=== PATIENT | male | born 1990 | race Caucasian/White ===

== ENCOUNTER 2017-08-13 16:07 | Emergency (ER) | payer BC, OTHER ==
[~2017-08-13] VITALS: Ht 175.3 cm; Wt 80.9 kg
[2017-08-13 16:14] VITALS: TEMP 36.5; Ht 175.3 cm; Wt 80.9 kg
[2017-08-13] MEDS ORDERED: GELATIN SPONGE 12-7MM ONE (16:40)
[2017-08-13] MEDS ORDERED: XYLOCAINE 1%/SOD BICARB 20 ML VIAL INFIL ONE (16:41)
[2017-08-13] MEDS ORDERED: DIPHTHERIA/TETANUS/PERTUSSIS 0.5 ML SYR/VIAL IM. ONE (17:15)
[2017-08-13 17:34] VITALS: BP 130/76; PULSE 76; O2SAT 98
--- NOTE | 2017-08-13 19:49 | EMERGENCY ROOM VISIT NOTE ---
ED Visit Note First contact with patient: 16:23 Chief complaint: Left long finger laceration HPI: This 27-year-old white male presents for evaluation of a laceration on his left long finger. The patient was working on his motorcycle yesterday when his finger slipped against a sharp edge of metal. He sustained a skin avulsion off of the ulnar tip of his long finger. He did not seek treatment at that time. He did put a Band-Aid on and covered it up with adhesive medical tape. He states the finger continues to bleed. He tried to change the bandages today but could not stand the pain. He was brought here by his significant other and family. He denies any numbness, tingling, or loss of motion. No other complaints. Tetanus is believed to be out of date. Pain is 10/10. He would not allow the triage nurse to remove his bandage secondary to pain in his finger. He is very anxious. Supplemental sheet was reviewed and signed. Previous surgeries: None Medical history: Benign Current Medications: None Allergies: NKDA Tetanus: Greater than 10 years Family History: Noncontributory. Social History: Positive tobacco use, employed. Single. REVIEW OF SYSTEM: HEENT: No dizziness, visual problems, hearing loss, or tinnitus. There is no difficulty swallowing and no oral lesions are present. PULMONARY: No cough, shortness of breath, sputum production or hemoptysis. CARDIOVASCULAR: No chest pain, palpitations, shortness of breath or peripheral edema. GASTROINTESTINAL: No diarrhea, constipation, nausea, vomiting, or abdominal pain. GENITOURINARY: No dysuria, frequency, urgency or nocturia. NEUROLOGIC: No weakness, muscle tenderness, epilepsy or history of neurological problems. MUSCULOSKELETAL: No history of joint tenderness/swelling. No history of arthritis or arthralgias. SKIN: No rashes or lesions. ENDOCRINE: No history of diabetes, thyroid disorders, or abnormal hair growth. Physical Exam: Vitals: Afebrile. Reviewed and filed in patient's chart General: Well-developed, well-nourished, young white male, in no acute distress. Obvious discomfort. He is sitting on the bed. Alert and oriented. Very anxious. Skin: Warm and dry with good turgor. No rashes. No ecchymosis or erythema. The patient is not diaphoretic. No abrasions. The patient has a large bandage present on his left long finger. This was removed carefully. The underlying Band-Aid was left in place until his finger was anesthetized. Upon removal, he has a small area of skin avulsion over the very tip. Approximately 1 cm long by 4 mm wide. It is superficial and there is no bone exposure. No nail involvement. Musculoskeletal: She has intact motor function to the MCP, PIP, and DIP joints. He has full extension. Strength is 5/5 for resisted flexion and extension. Neurologic: Gross sensation is intact across the finger including the tip. Impression: Left long finger tip avulsion Procedure: Informed oral consent was obtained for cleansing. The left long finger was prepped with Betadine and draped with a sterile towel. Area was anesthetized using 4 mL 1% plain buffered lidocaine in a digital block. Finger tourniquet was placed. This was in place for approximately 12 minutes. Thorough inspection was performed. Wound was irrigated using Betadine diluted with normal sterile saline, under jet spray lavage. There is no foreign material. No bone exposure. No nail involvement. Gelfoam was applied and a pressure dressing was applied. Hemostasis was achieved. Plan: Patient was educated regarding today's findings. Conservative care measures were discussed. He will keep the bandage in Gelfoam in place for 3-4 days. Outer dressing may be removed at that point. Trim any loose Gelfoam at that time. Do not pick at the remaining attached Gelfoam. Cleanse the wound daily with soap and water. Ice and elevate intermittently as needed for discomfort. Tylenol and ibuprofen every 6 hours as needed for pain. Wound care handout was provided. He may shower. Avoid soaking or swimming for two weeks. Return to the ER for any acute changes or signs of infection. Tetanus was updated using Adacel 0.5 mL IM. Current/Historical Medications No Active Prescriptions or Reported Meds Allergies Coded Allergies: No Known Allergies (Unverified , 08/13/17) Vital Signs Date Time Temp Pulse Resp B/P (MAP) Pulse Ox O2 Delivery O2 Flow Rate FiO2 08/13/17 17:34 76 20 130/76 98 08/13/17 16:14 36.5 90 18 145/96 100 Room Air Medications Administered Medications (Trade) Dose Ordered Sig/Miki Route Start Time Stop Time Status Last Admin Dose Admin Diphtheria/ Pertussis/Tetanus Vacc (Adacel Inj) 0.5 ml ONCE ONCE IM. 08/13/17 17:15 08/13/17 17:16 DC 08/13/17 17:12 0.5 ML Departure Information Impression Primary Impression: Fingertip avulsion Dispostion Home / Self-Care Condition GOOD Prescriptions No Active Prescriptions or Reported Meds Forms WORK / SCHOOL INSTRUCTIONS, HOME CARE DOCUMENTATION FORM, MOTRIN USE, TYLENOL USE, IMPORTANT VISIT INFORMATION Patient Instructions [facility] Additional Instructions Elevate the finger frequently to reduce pain and swelling Leave the dressing in place for 3-4 days and then remove the outer dressing only Trim the loose Gelfoam with a small scissors. It will fall off gradually like a scab. Do not pick at it Keep the finger dry for 5 days Tylenol 650 mg and Motrin 600 mg every 6 hours as needed for discomfort Follow-up with your PCP as needed
== END 2017-08-13 17:36 | disposition home or self-care (01) ==
LOC: C.EDB 16:08 → C.EDD 17:36
DX: S61.216A Laceration without foreign body of right little finger without damage to nail, initial encounter (principal); W26.8XXA Contact with other sharp object(s), not elsewhere classified, initial encounter; F17.200 Nicotine dependence, unspecified, uncomplicated; Z23 Encounter for immunization

== ENCOUNTER 2017-08-13 20:48 | Emergency (ER) | payer BC ==
[~2017-08-13] VITALS: Ht 175.3 cm; Wt 82.3 kg
[2017-08-13 20:49] VITALS: BP 151/99; PULSE 77; O2SAT 96; Ht 175.3 cm; Wt 82.3 kg
[2017-08-13] MEDS ORDERED: GELATIN SPONGE 12-7MM EXT ONE (21:00)
--- NOTE | 2017-08-13 22:48 | EMERGENCY ROOM VISIT NOTE ---
ED Visit Note First contact with patient: 20:55 Chief Complaint: Wound recheck. History of Present Illness: Mr. Loaiza is a 27-year-old white male who ambulates into the ED accompanied by 2 female friends. Patient reports he was just in the emergency department less than 2 hours ago for evaluation of a skin avulsion on the left middle finger he sustained last night. At that time his wound was cleansed and covered with Surgifoam and a dressing. Patient reports he went home and when he was taking off a shirt he pulled off his dressing and bleeding started to recur. He reports he put a dressing on the wound but did not attempt to control bleeding and return to the ED for recheck. Physical Examination: Vital Signs: Date Time Temp Pulse Resp B/P (MAP) Pulse Ox O2 Delivery O2 Flow Rate FiO2 08/13/17 20:49 77 16 151/99 96 Room Air GENERAL: 27-year-old male in mild distress due to pain, nontoxic-appearing, afebrile and hemodynamically stable. NEUROLOGICAL: Awake, alert and oriented to person, place and time. Answering questions appropriately and following commands. SKIN: Warm, dry and pink. Right Middle Finger: Over the distal phalanx patient has a approximately 1 cm skin avulsion that is currently actively bleeding. RIGHT MIDDLE FINGER: Soft tissue injury as noted above. No gross bony deformity. Finger is warm and pink and capillary refill is brisk. He was able to distinguish light sensations through all dermatomes. ED Course: Patient is assessed as noted above. Patient's medication list was reviewed. Patient's wound was irrigated with sterile saline and read and age with Surgifoam, gauze pads, and gauze bandage. Patient was briefly observed and had no bleeding through his bandages are Surgifoam. Patient was educated about today's findings and instructed on his treatment plan ; he verbalizes understanding and agreement with this plan. Clinical Impression: Wound recheck. Right middle finger skin avulsion. Disposition: Patient discharged home in stable condition; prior to departure he was reassessed and subjectively reported he was feeling better. Plan: Comfort measures, Surgifoam removal and signs of infection were discussed with the patient. Patient was encouraged return ED for any uncontrolled pain, signs of infection or any new/concerning symptoms.
== END 2017-08-13 21:37 | disposition home or self-care (01) ==
LOC: C.EDB 20:49 → C.EDD 21:37
DX: S61.213D Laceration without foreign body of left middle finger without damage to nail, subsequent encounter (principal); X58.XXXD Exposure to other specified factors, subsequent encounter